=== PATIENT | female | born 1980 | race Two or more races ===

== ENCOUNTER 2022-07-20 09:30 | Inpatient (IN) | payer OTHER ==
[~2022-07-20] VITALS: Ht 152.4 cm; Wt 51.7 kg
== END 2022-07-23 10:35 | disposition home or self-care (01) | DRG 743 ==
LOC: O/R 07-22 07:21 → OB/GYN 07-22 09:30
PROVIDERS: ADMIT Obstetrics & Gynecology; ATTEND Obstetrics & Gynecology
PROC: 0UT74ZZ Resection of Bilateral Fallopian Tubes, Percutaneous Endoscopic Approach (ICD-10-PCS; 2022-07-22)
PROC: 0UT94ZZ Resection of Uterus, Percutaneous Endoscopic Approach (ICD-10-PCS; principal; 2022-07-22 10:00)
DX: D25.0 Submucous leiomyoma of uterus (principal); N72 Inflammatory disease of cervix uteri; Z20.822 Contact with and (suspected) exposure to COVID-19